=== PATIENT | female | born 1975 | race Caucasian/White ===

== ENCOUNTER 2019-07-31 19:27 | Inpatient (IN) | payer BC, MEDICARE ==
[~2019-07-31] VITALS: Ht 172.7 cm; Wt 113.0 kg
[2019-07-31] MEDS ORDERED: SODIUM CHLORIDE 0.9% 1,000 ML IVB ONE (19:56)
[2019-07-31] MEDS ORDERED: ONDANSETRON HCL 4 MG/2 ML VIAL IV ONE ×2 (20:00→22:00)
[2019-07-31] MEDS ORDERED: HYDROmorphone HCL 2 MG/ML VL IV ONE ×2 (20:00→22:00)
[2019-07-31] MEDS ORDERED: FAMOTIDINE (10MG/ML) 2ML VL IV ONE (20:15)
[2019-07-31] MEDS ORDERED: IOHEXOL 300 MG/ML 100ML BOTTLE IJ ONE (20:34)
[2019-07-31 20:46] LABS: Basophils # (auto) 0.1 uL; Basophils % (auto) 0.6 % (0.0-2.0); Eosinophils # (auto) 0.3 uL; Eosinophils % (auto) 2.5 % (0.0-7.0); Hematocrit 40.8 % (36.0-46.0); Hemoglobin 13.3 g/dL (12.2-16.2); Lymphocytes # (auto) 2.9 uL; Lymphocytes % (auto) 22.1 % (10.0-50.0); Mean Corpuscular Hemoglobin 28.2 pg (28.0-32.0); Mean Corpuscular Hgb Conc. 32.6 g/dL (32.0-36.0); Mean Corpuscular Volume 86.4 fL (80.0-100.0); Monocytes # (auto) 0.6 uL; Monocytes % (auto) 4.8 % (0.0-12.0); Neutrophils # (auto) 9.2 uL; Platelet Count (auto) 336 10^3/uL (140-450); Red Blood Cells 4.72 10^6/uL (4.0-5.20); White Blood Cell 13.1 10^3/uL (4.4-10.8)
[2019-07-31 20:55] LABS: Albumin 3.7 g/dL (3.4-5.0); Calcium 9.3 mg/dL (8.5-10.1); Potassium 3.9 mmol/L (3.5-5.1)
[2019-07-31 20:58] LABS: BUN/Creatinine Ratio 19.2; Bilirubin, Total 0.2 mg/dL (0.2-1.0); Total Protein 7.8 g/dL (6.4-8.2)
[2019-07-31 21:04] LABS: Urine Bacteria FEW /hpf (None Seen); Urine Blood Negative /uL (Negative); Urine Specific Gravity 1.021 (1.001-1.035); Urine WBC <1 /hpf (0 - 5)
[2019-07-31] MEDS ORDERED: ACETAMINOPHEN 325 MG TAB PO PRN (23:45)
[2019-07-31] MEDS ORDERED: cefTRIAXone 1GM/50ML D5W 50 ML IV ONE (23:45)
[2019-08-01] MEDS: SODIUM CHLORIDE 0.9% 1,000 ML IV SCH ×3 (00:28→11:29)
--- NOTE | 2019-08-01 00:52 | NUR ---
MS admit from ER HOLLI,ALEX admitted to tele/MS; no SBAR received. Patient oriented by YURIY FORBES, primary RN, and Maninder, RN to unit, room, bed, and unit policies regarding patient care and visiting hours. Patient weighed by bedscale and encouraged to call if she needs anything. All questions and concerns addressed, patient verbalized understanding. Pt bed in low position and locked. PIV infusing without pump to pt's right. Nurse call light to pt's right in the bed. Pt's here for approx 2 hrs then left to go home.
[2019-08-01 01:00] VITALS: BP 133/91
[2019-08-01] MEDS: HYDROcodone-ACET 5/325MG TAB PO PRN ×2 (02:19→21:25)
[2019-08-01] MEDS: TEMAZEPAM 15 MG CAP PO PRN ×2 (02:19→21:24)
[2019-08-01] MEDS: ONDANSETRON HCL 4 MG/2 ML VIAL IV PRN ×2 (02:21→07:04)
[2019-08-01] MEDS ORDERED: IBUP600T27 PO (04:21)
[2019-08-01] MEDS ORDERED: FENT75DI2 TD (04:21)
[2019-08-01] MEDS ORDERED: CHOL20003 PO (04:21)
[2019-08-01] MEDS ORDERED: GABA100C PO (04:21)
[2019-08-01 05:00] VITALS: BP 131/75
[2019-08-01 06:34] LABS: Basophils # (auto) 0.2 uL; Basophils % (auto) 1.6 % (0.0-2.0); Eosinophils # (auto) 0.2 uL; Eosinophils % (auto) 2.5 % (0.0-7.0); Hematocrit 35.4 % (36.0-46.0); Hemoglobin 11.9 g/dL (12.2-16.2); Lymphocytes # (auto) 2.6 uL; Lymphocytes % (auto) 26.1 % (10.0-50.0); Mean Corpuscular Hgb Conc. 33.7 g/dL (32.0-36.0); Mean Corpuscular Volume 85.9 fL (80.0-100.0); Monocytes # (auto) 0.6 uL; Monocytes % (auto) 6.3 % (0.0-12.0); Neutrophils # (auto) 6.3 uL; Neutrophils % (auto) 63.5 % (37.0-80.0); Platelet Count (auto) 269 10^3/uL (140-450); Red Blood Cells 4.12 10^6/uL (4.0-5.20); Red Cell Distribution Width 14.1 % (11.8-14.3); White Blood Cell 9.9 10^3/uL (4.4-10.8)
[2019-08-01] MEDS: LEVOTHYROXINE SODIUM 50 MCG TAB PO SCH (06:48)
[2019-08-01 06:49] LABS: Albumin 3.1 g/dL (3.4-5.0); BUN/Creatinine Ratio 21.2; Calcium 8.5 mg/dL (8.5-10.1); Potassium 3.8 mmol/L (3.5-5.1)
[2019-08-01 06:52] LABS: Bilirubin, Total 0.1 mg/dL (0.2-1.0); Total Protein 6.6 g/dL (6.4-8.2)
[2019-08-01] MEDS: MORPHINE SULFATE 4 MG/ML SYR/VIAL IV PRN ×4 (07:05→20:21)
--- NOTE | 2019-08-01 08:00 | NUR ---
ASSESSMENT NOTE PATIENT IS ALERT X4, RESTING IN BED COMFORTABLY, SELF REPOSITION, ABLE TO VERBALIS HER NEEDS, AMBULATE NEEDED, CALL LIGHT WITHIN REACH, PT CONTINUE ON PAIN MANAGEMENT AT ALL TIMES, NEEDED.
[2019-08-01 09:00] VITALS: BP 145/91
[2019-08-01] MEDS: cefTRIAXone 1GM/50ML D5W 50 ML IV SCH (09:52)
[2019-08-01] MEDS: SERTRALINE HCL 50 MG TAB PO SCH (09:53)
[2019-08-01] MEDS: buPROPion HCL 75 MG TAB PO SCH (09:53)
[2019-08-01] MEDS ORDERED: FAMOTIDINE 20 MG TAB PO SCH (10:00)
--- NOTE | 2019-08-01 11:23 | NUR ---
FAMILY PATIENT'S DAUGHTER AT BED SIDE
[2019-08-01 13:00] VITALS: BP 135/77
[2019-08-01] MEDS: SUCRALFATE 1 GM/10 ML ORAL SUSP PO SCH ×3 (14:30→21:23)
[2019-08-01] MEDS: PANTOPRAZOLE 40 MG TAB PO SCH ×2 (15:03→21:26)
[2019-08-01 15:54] LABS: INR 0.93 (0.9-1.15)
[2019-08-01 17:00] VITALS: BP 145/92
--- NOTE | 2019-08-01 18:30 | NUR ---
PATIENT CONTINUE STABLE, TOLERATED DIET WELL, CONTINUE MONITORING
[2019-08-01 21:43] VITALS: BP 147/84
[2019-08-02] MEDS: MORPHINE SULFATE 4 MG/ML SYR/VIAL IV PRN ×6 (00:59→23:01)
[2019-08-02] MEDS: LEVOTHYROXINE SODIUM 50 MCG TAB PO SCH (04:58)
[2019-08-02] MEDS: SUCRALFATE 1 GM/10 ML ORAL SUSP PO SCH ×4 (04:59→20:50)
[2019-08-02] MEDS: ONDANSETRON HCL 4 MG/2 ML VIAL IV PRN ×3 (05:00→22:59)
[2019-08-02 05:36] VITALS: BP 139/73
[2019-08-02 09:00] VITALS: BP 129/76
--- NOTE | 2019-08-02 09:00 | NUR ---
DR ROB AT BED SIDE FOLLOWING FOLLOWING UP ON PT, DR ROB DID EXAMIN PATIENT'S CYST ON HER SOFT PALATE AND THE RASH AT THE LEFT HIP, DR ROB INFORM PT THAT WHAT IN HER MOUTH IS A CYST AND SHE NEED TO GO TO ENT, AND THE RASH IS ECZEMA, PATIENT ADDED THAT HER DOCTOR DID GIVE HER AN OINTMENT FOR IT
--- NOTE | 2019-08-02 09:50 | NUR ---
TRANSFER PT VIA HOSPITAL BED TO PRE OP FOR EGD, PT IS STABLE, NO DISTRESS NOTED, REPORT GIVEN TO NAIDA CHEW, AWARE AT BED SIDE
[2019-08-02] MEDS: cefTRIAXone 1GM/50ML D5W 50 ML IV SCH (09:54)
[2019-08-02] MEDS ORDERED: fentaNYL CITRATE 100 MCG/2 ML VL ONE (10:49)
[2019-08-02] MEDS ORDERED: SODIUM CHLORIDE LOCK 10 ML ONE (10:50)
[2019-08-02] MEDS ORDERED: MIDAZOLAM HCL 1MG/1ML-2 ML VIAL ONE (10:50)
[2019-08-02] MEDS ORDERED: PROPOFOL 10 MG/ML 20 ML IV ONE (10:50)
[2019-08-02] MEDS ORDERED: ONDANSETRON HCL 4 MG/2 ML VIAL ONE (10:50)
[2019-08-02] MEDS: SODIUM CHLORIDE 0.9% 1,000 ML IV SCH ×2 (11:03→22:49)
[2019-08-02] MEDS ORDERED: ONDANSETRON HCL 4 MG/2 ML VIAL IV PRN (11:15)
[2019-08-02] MEDS ORDERED: fentaNYL CITRATE 100 MCG/2 ML VL IV PRN (11:15)
--- NOTE | 2019-08-02 11:34 | NUR ---
PATIENT IS BACK TO HER ROOM, FULLY ALERT ORIENTED X4 AND SITUATION, ABLE TO SWALLOW, ALL FAMILY AT BED SIDE AWARE
[2019-08-02] MEDS: PANTOPRAZOLE 40 MG TAB PO SCH ×2 (12:26→20:50)
[2019-08-02] MEDS: buPROPion HCL 75 MG TAB PO SCH (12:27)
[2019-08-02] MEDS: SERTRALINE HCL 50 MG TAB PO SCH (12:27)
[2019-08-02 13:00] VITALS: BP 141/86
--- NOTE | 2019-08-02 15:00 | NUR ---
SPOKE WITH DR ROB OVER THE PHONE TO REMIND HIM WITH THE DISCHARGE HOME ORDERS, SAID THAT HE WILL DISCHARGE PT HOME TOMORROW
[2019-08-02] MEDS: HYDROcodone-ACET 5/325MG TAB PO PRN ×2 (16:49→20:50)
[2019-08-02 17:00] VITALS: BP 143/87
--- NOTE | 2019-08-02 18:10 | NUR ---
PATIENT CONTINUE STABLE, PLANING TO TRANSFER PATIENT TO [facility] A PRIVATE ROOM IN ORDER TO HAVE A GOOD NIGHT SLEEP
[2019-08-02] MEDS ORDERED: GABA300C10 PO (18:33)
--- NOTE | 2019-08-02 19:45 | NUR ---
Opening Shift Note Assumed care of patient, awake and alert, oriented x 4. On room air with even and unlabored respirations. No S/S of distress or SOB. IV intact and patent. Patient ambulates independently. Bed low locked position with side rails up x 2 and call light within reach. Instructed on POC and to call for assist PRN, will continue to monitor for changes Q1hr and PRN.
[2019-08-02] MEDS: GABAPENTIN 300 MG CAP PO SCH (20:50)
[2019-08-02 22:00] VITALS: BP 122/65
[2019-08-03] MEDS: ONDANSETRON HCL 4 MG/2 ML VIAL IV PRN ×2 (03:27→08:52)
--- NOTE | 2019-08-03 03:55 | NUR ---
NEVIN Dudley paged RE: migraine patient reports migraine, reported morphine morphine, norco, tylenol, cool wash cloth and dim light are not effective. Awaiting call back, will continue care.
[2019-08-03] MEDS ORDERED: SUMAtriptan SUCCINATE 25 MG TAB PO ONE (04:00)
--- NOTE | 2019-08-03 04:00 | NUR ---
Received call back from NEVIN Dudley new order received for Imitrex 50mg PO once. Read and verified orders, will carry out and continue care.
[2019-08-03 05:00] VITALS: BP 126/74
[2019-08-03] MEDS: GABAPENTIN 300 MG CAP PO SCH (06:43)
[2019-08-03] MEDS: LEVOTHYROXINE SODIUM 50 MCG TAB PO SCH (06:43)
[2019-08-03] MEDS: SUCRALFATE 1 GM/10 ML ORAL SUSP PO SCH (06:43)
[2019-08-03] MEDS: MORPHINE SULFATE 4 MG/ML SYR/VIAL IV PRN (06:45)
--- NOTE | 2019-08-03 06:58 | NUR ---
Closing Note patient awake resting in bed with even and unlabored respirations, no s/s of distress. IV intact and patent. Endorsed care to day shift RN.
--- NOTE | 2019-08-03 07:20 | NUR ---
Opening Shift Note Report received from NOC RN. This RN and feeder worker power unit operator introduced to patient, who was alert and without S/S of distress resting in bed. Patient did state she is still having a headache and stomach pain, however tolerable currently. Call [place] within reach and patient verbalized understanding to call if needing assistance.
[2019-08-03] MEDS: buPROPion HCL 75 MG TAB PO SCH (08:51)
[2019-08-03] MEDS: SERTRALINE HCL 50 MG TAB PO SCH (08:51)
[2019-08-03] MEDS: PANTOPRAZOLE 40 MG TAB PO SCH (08:51)
[2019-08-03] MEDS: cefTRIAXone 1GM/50ML D5W 50 ML IV SCH (08:52)
[2019-08-03 09:00] VITALS: BP 143/95
[2019-08-03] MEDS: HYDROcodone-ACET 5/325MG TAB PO PRN (09:02)
--- NOTE | 2019-08-03 10:05 | NUR ---
Discharge note Patient given discharge instruction by triple valve mechanic. Patient verbalized understanding. Patient's IV discontinued without complications, tip intact, pressure dressing applied. Patient's ID band removed. Patient accompanied by family, wheeled out to entrance by Maite LEUNG.
== END 2019-08-03 10:05 | disposition home or self-care (01) | DRG 392 ==
LOC: ER 19:27 → EAST 19:28
PROVIDERS: ADMIT Nurse Practitioner; ATTEND Family Medicine
PROC: 0DB68ZX Excision of Stomach, Via Natural or Artificial Opening Endoscopic, Diagnostic (ICD-10-PCS; 2019-08-02)
PROC: 0DB98ZX Excision of Duodenum, Via Natural or Artificial Opening Endoscopic, Diagnostic (ICD-10-PCS; principal; 2019-08-02 10:20)
DX: K29.00 Acute gastritis without bleeding (principal); J90 Pleural effusion, not elsewhere classified; N13.30 Unspecified hydronephrosis; E03.9 Hypothyroidism, unspecified; E66.9 Obesity, unspecified; F32.9 Major depressive disorder, single episode, unspecified; K59.00 Constipation, unspecified; K76.0 Fatty (change of) liver, not elsewhere classified; L30.9 Dermatitis, unspecified; M79.7 Fibromyalgia; N28.1 Cyst of kidney, acquired; G89.29 Other chronic pain; N83.202 Unspecified ovarian cyst, left side; Z83.3 Family history of diabetes mellitus; Z90.49 Acquired absence of other specified parts of digestive tract; Z79.899 Other long term (current) drug therapy; Z68.37 Body mass index [BMI] 37.0-37.9, adult
CPT/HCPCS: 36415; 43239; 71046; 74177; 76700; 80053; 81001; 82150; 82784; 83516; 83690; 83880; 84484; 84702; 85025; 85610; 86255; 87040; 93005; 94761; 96365; 96366; 96375; G0378; J0696; J2250; J2405; J2704; J3490

== ENCOUNTER 2020-05-28 13:05 | Emergency (ER) | payer BC, MEDICARE ==
[~2020-05-28] VITALS: Ht 172.7 cm; Wt 101.6 kg
[~2020-05-28 13:05] MED LIST: CHOL20003 PO; FENT75DI2 TD; GABA300C10 PO; IBUP600T27 PO
[2020-05-28 13:43] VITALS: BP 111/61
[2020-05-28] MEDS ORDERED: ONDANSETRON ODT 4 MG TAB PO ONE (14:45)
[2020-05-28] MEDS ORDERED: ACETAMINOPHEN 325 MG TAB PO ONE (14:45)
== END 2020-05-28 18:11 | disposition home or self-care (01) ==
LOC: ER 13:05
DX: J20.9 Acute bronchitis, unspecified (principal); Z20.828 Contact with and (suspected) exposure to other viral communicable diseases
CPT/HCPCS: 71045; 99284; Q0162; U0003

== ENCOUNTER 2020-08-17 16:10 | Emergency (ER) | payer BC, MEDICARE ==
[~2020-08-17] VITALS: Ht 172.7 cm; Wt 93.0 kg
[2020-08-17 16:40] VITALS: BP 125/64
== END 2020-08-17 20:35 | disposition home or self-care (01) ==
LOC: ER 16:10
DX: J18.1 Lobar pneumonia, unspecified organism (principal); J01.00 Acute maxillary sinusitis, unspecified; Z20.828 Contact with and (suspected) exposure to other viral communicable diseases
CPT/HCPCS: 36415; 71045; 87426; 99284; C9803; U0003